=== PATIENT | female | born 1990 | race Two or more races ===

== ENCOUNTER 2025-03-10 09:39 | Emergency (ER) | payer OTHER ==
[~2025-03-10] VITALS: Ht 160 cm; Wt 56.2 kg
[2025-03-10 09:58] LABS: BASOPHILS # (AUTO) 0.1 K/uL (0.0-0.2); BASOPHILS % (AUTO) 0.7 % (0.0-2.0); EOSINOPHILS # (AUTO) 0.1 K/uL (0.0-0.7); EOSINOPHILS % (AUTO) 1.9 % (0.0-6.0); HEMATOCRIT 38 % (33-45); HEMOGLOBIN 12.2 g/dL (11.5-14.8); LYMPHOCYTES # (AUTO) 2.2 K/uL (0.8-4.8); LYMPHOCYTES % (AUTO) 29.8 % (20.0-44.0); MEAN CORPUSCULAR HEMOGLOBIN 30 PG (26.0-33.0); MEAN CORPUSCULAR HGB CONC 32 g/dl (31.0-36.0); MEAN CORPUSCULAR VOLUME 92 fL (82-100); MONOCYTES # (AUTO) 0.5 K/uL (0.1-1.30); MONOCYTES % (AUTO) 6.1 % (2.0-12.0); NEUTROPHILS # (AUTO) 4.7 K/uL (1.8-8.9); NEUTROPHILS % (AUTO) 61.5 % (43.0-81.0); PLATELET COUNT (AUTO) 351 K/uL (150-450); RED BLOOD CELL COUNT(AUTO) 4.11 MIL/uL (4.0-5.2); RED CELL DISTRIBUTION WIDTH 15.1 % (11.5-15.0); WHITE BLOOD COUNT (AUTO) 7.6 K/uL (4.3-11.0)
[2025-03-10 10:09] LABS: CALCIUM, SERUM 9.1 mg/dL (8.5-10.1); POTASSIUM 4.1 mmol/L (3.5-5.1)
[2025-03-10] MEDS: LEVETIRACETAM (500MG) 1,000 MG in IV NS 0.9% 90 ML IV SCH (10:10)
[2025-03-10 10:14] LABS: ALBUMIN 3.6 g/dL (3.4-5.0); BILIRUBIN,DIRECT 0.1 mg/dL (0.0-0.2); BILIRUBIN,TOTAL 0.4 mg/dL (0.2-1.0)
[2025-03-10] MEDS ORDERED: IBUPROFEN 600 MG TABLET ONE (10:49)
[2025-03-10] MEDS: IBUPROFEN 600 MG TABLET PO ONE (10:54)
[2025-03-10 11:35] VITALS: BP 100/60; TEMP 97.6; O2SAT 100
== END 2025-03-10 11:41 | disposition home or self-care (01) ==
LOC: ER 09:46
DX: G40.909 Epilepsy, unspecified, not intractable, without status epilepticus (principal); R10.2 Pelvic and perineal pain
CPT/HCPCS: 99284; 96365; 85025; 80048; 80076; 36415; 84702; J7030; J1953

== ENCOUNTER 2025-03-15 10:15 | Emergency (ER) | payer SELFPAY ==
[~2025-03-15] VITALS: Ht 160 cm; Wt 49.9 kg
[2025-03-15] MEDS ORDERED: CYCL5TAB PO (11:39)
[2025-03-15] MEDS ORDERED: IBUP-1955 PO (11:39)
[2025-03-15] MEDS ORDERED: LIDO30AD10 TP (11:39)
[2025-03-15 11:58] VITALS: BP 119/70; TEMP 98.6; O2SAT 98
== END 2025-03-15 11:59 | disposition home or self-care (01) ==
LOC: ER 10:22
DX: M54.50 Low back pain, unspecified (principal); R56.9 Unspecified convulsions; V49.3XXA Car occupant (driver) (passenger) injured in unspecified nontraffic accident, initial encounter; Y93.89 Activity, other specified; Y92.410 Unspecified street and highway as the place of occurrence of the external cause; Y99.9 Unspecified external cause status